=== PATIENT | female | born 2000 | race Caucasian/White ===

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

== ENCOUNTER 2021-04-22 11:33 | Emergency (ER) | payer BC ==
[2021-04-22 13:23] VITALS: PULSE 72
[2021-04-22] MEDS ORDERED: Gentamicin 0.3% Ophth Soln 5 ML Bottle EYELF ONE (13:56)
--- NOTE | 2021-04-22 14:39 | EDM.PDOC ---
Scribed by Anna Hirsch 04/22/21 1439 for Mike Sumner MD ED HPI GENERAL MEDICAL PROBLEM - General Chief Complaint: Eye Problems Stated Complaint: [id number] BAD EYE INFECTION Time Seen by Provider: 04/22/21 13:40 Source of Information: Reports: Patient, RN, RN Notes Reviewed History Limitations: Reports: No Limitations - History of Present Illness INITIAL COMMENTS - FREE TEXT/NARRATIVE: Patient presents with L periorbital redness and rash without conjunctivitis that causes 8/10 pain she describes as burning. It started yesterday morning while working. It is associated with itchiness, and non-purulent eye discharge. She denies head ache, congestion, cough, no sick contacts. She has an ~8 year history of blepharitis yearly around this time, this is similar to the past episodes. 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: Other Medication(s) (Ibuprofen) Left Eye Pain Score (Numeric/FACES): 7 - Related Data Allergies Allergy/AdvReac Type Severity Reaction Status Date / Time cefdinir [From Omnicef] Allergy Swelling Verified 01/01/18 19:02 latex Allergy Rash Verified 01/01/18 19:02 sodium fluoride Allergy Swelling Verified 01/01/18 19:02 [From Thera-Flur] Home Meds: Home Meds l-Norgest/E.estradiol-E.estrad [Seasonique 0.15-0.03-0.01] 1 tab PO DAILY 04/22/15 [History] Propranolol HCl 40 mg PO ASDIRECTED 04/22/21 [History] Past Medical History HEENT History: Reports: None Cardiovascular History: Reports: None Respiratory History: Reports: Asthma Gastrointestinal History: Reports: None Genitourinary History: Reports: None Musculoskeletal History: Reports: None Psychiatric History: Reports: Anxiety Hematologic History: Reports: Anemia, Iron Deficiency - Infectious Disease History Infectious Disease History: Reports: Shingles Social & Family History - Family History Family Medical History: No Pertinent Family History Cardiac: Reports: None Respiratory: Reports: None, Asthma GI: Reports: None - Tobacco Use Tobacco Use Status *Q: Current Every Day Tobacco User Years of Tobacco use: 1 Packs/Tins Daily: 1 - Caffeine Use Caffeine Use: Reports: Coffee - Recreational Drug Use Recreational Drug Use: No ED ROS GENERAL - Review of Systems Review Of Systems: Comprehensive ROS is negative, except as noted in HPI. ED EXAM GENERAL W FULL EYE - Physical Exam Exam: See Below Exam Limited By: No Limitations General Appearance: Alert, WD/WN, No Apparent Distress Eye Exam: Left Eye: Periorbital Changes Eyelids: Right: Normal Appearance, Left: Edema, Erythema Conjunctiva & Sclera: Bilateral: Normal Appearance Extraocular Movements: Bilateral: Intact Pupils: Normal Accommodation Nose: Normal Inspection, Normal Mucosa, No Blood Throat/Mouth: Normal Inspection, Normal Lips, Normal Teeth, Normal Gums, Normal Oropharynx, Normal Voice, No Airway Compromise Head: Atraumatic, Normocephalic Respiratory/Chest: No Respiratory Distress, Lungs Clear, Normal Breath Sounds, No Accessory Muscle Use, Chest Non-Tender Cardiovascular: Normal Peripheral Pulses, Regular Rate, Rhythm, No Edema, No Gallop, No JVD, No Murmur, No Rub Neurological: Alert, Oriented, CN II-XII Intact, Normal Cognition, Normal Gait, Normal Reflexes, No Motor/Sensory Deficits Psychiatric: Normal Affect, Normal Mood Skin Exam: Warm, Dry, Intact, Normal Color, No Rash Lymphatic: No Adenopathy Course - Vital Signs Last Recorded V/S: Last Vital Signs Temp 97.7 F 04/22/21 13:20 Pulse 72 04/22/21 13:20 Resp 14 04/22/21 13:20 BP 127/76 04/22/21 13:20 Pulse Ox 99 04/22/21 13:20 - Orders/Labs/Meds Meds: Medications Discontinued Medications Generic Name Dose Route Start Last Admin Trade Name Frelexy PRN Reason Stop Dose Admin Gentamicin Sulfate 5 ml 04/22/21 13:56 04/22/21 14:17 Gentamicin 0.3% Ophth Soln 5 Ml Bottle EYELF 04/22/21 13:57 1 drop ONETIME ONE Administration Departure - Departure Time of Disposition: 14:37 Disposition: Home, Self-Care 01 Condition: Good Clinical Impression: Periorbital dermatitis Conjunctivitis Qualifiers: Conjunctivitis type: acute Acute conjunctivitis type: unspecified Laterality: left Qualified Code(s): H10.32 - Unspecified acute conjunctivitis, left eye - Discharge Information *PRESCRIPTION DRUG MONITORING PROGRAM REVIEWED*: Not Applicable *COPY OF PRESCRIPTION DRUG MONITORING REPORT IN PATIENT JULIANA: Not Applicable Instructions: Bacterial Conjunctivitis, Adult, Allergic Conjunctivitis, Adult, [id number] Forms: ED Department Discharge Additional Instructions: Rx: Bactroban (Mupirocin) 2% Rx: Triamcinolone 0.1% Use Gentamicin eye drops: one drop in left eye four times a day for 5 days. Follow up in clinic if not improving as expected. Sepsis Event Note (ED) - Focused Exam Vital Signs: Vital Signs Temp Pulse Resp BP Pulse Ox 04/22/21 13:20 97.7 F 72 14 127/76 99 I have read and agree with the documentation that has been completed regarding this visit. By signing this record, I attest that the documentation was completed in my physical presence and is an accurate record of the encounter.
[2021-04-22 14:49] VITALS: BP 120/72
== END 2021-04-22 14:48 | disposition home or self-care (01) ==
LOC: DL.ED 11:33
DX: H10.32 Unspecified acute conjunctivitis, left eye (principal); L30.9 Dermatitis, unspecified; Z88.1 Allergy status to other antibiotic agents; Z91.040 Latex allergy status; Z88.8 Allergy status to other drugs, medicaments and biological substances; Z72.0 Tobacco use
CPT/HCPCS: 99282; A9270-GY

== ENCOUNTER 2021-07-01 05:06 | Emergency (ER) | payer BC ==
--- NOTE | 2021-07-01 05:26 | EDM.PDOC ---
"<Huang Mike M - Last Filed: 07/01/21 07:17> ED HPI GENERAL MEDICAL PROBLEM - General Chief Complaint: Upper Extremity Injury/Pain Stated Complaint: RIGHT HAND BROKEN Time Seen by Provider: 07/01/21 05:26 - Related Data Allergies Allergy/AdvReac Type Severity Reaction Status Date / Time cefdinir [From Omnicef] Allergy Swelling Verified 07/01/21 05:25 latex Allergy Rash Verified 07/01/21 05:25 sodium fluoride Allergy Swelling Verified 07/01/21 05:25 [From Thera-Flur] Home Meds: Home Meds Propranolol HCl 40 mg PO ASDIRECTED 04/22/21 [History] Ferrous Sulfate 325 mg PO DAILY 07/01/21 [History] medroxyPROGESTERone [Depo-Provera Contraceptive] 150 mg IM ASDIRECTED 07/01/21 [History] Course - Radiology Interpretation Free Text/Narrative:: [facility] Final Radiology Report with Addendum Call: [phone] assistance Online chat: [email or web address] Name: YURY TY Age: 20Years F Date: 07/01/2021 SSN: -- : 2000 Study: CR HAND COMP MIN 3V RT Requesting Physician: Maday Rich Images: 3 Addl Studies: Provided Clinical History: punched a door, right hand pain Contrast: Contrast Medium: Contrast Amount: Contrast Method: Page 1 of 2 Addendum created by Ryan Rodríguez MD on 07/01/2021 7:02 AM Central Time ([place] & [place]): With the advantage of a true lateral radiograph obtained after dictation, there is prominent soft tissue swelling of the hand, primarily at the dorsum of the hand. Also, there is a questionable fracture at the dorsum of the hamate, which could involve the 5th CMC joint. Initial Report created on 07/01/2021 6:11 AM Central Time ([place] & [place]): PROCEDURE INFORMATION: Exam: XR Right Hand Exam date and time: 07/01/2021 5:37 AM Age: 20 years old Clinical indication: Other: Pain; Additional info: Punched a door, right hand pain TECHNIQUE: Imaging protocol: XR Right hand. Views: 3 or more views. COMPARISON: No relevant prior studies available. FINDINGS: Bones/joints: Bone mineralization is normal. No evident fracture. Joint spacing and alignment are maintained. Soft tissues: The soft tissues are unremarkable. Other findings: There is no true lateral radiograph. IMPRESSION: 1. No dedicated lateral radiograph is provided for interpretation. A dedicated l ateral radiograph is recommended for complete evaluation. YURY TY | Final Radiology Report CONFIDENTIALITY STATEMENT This report is intended only for use by the referring physician, and only in accordance with law. If you received this in error, call [phone]. Page 2 of 2 2. On the provided views, no acute osseous abnormality is evident. Thank you for allowing us to participate in the care of your patient. Dictated and Authenticated by: Ryan Rodríguez MD 07/01/2021 6:11 AM Central Time ([place] & [place]) Departure - Departure Time of Disposition: 07:21 Disposition: Home, Self-Care 01 Clinical Impression: Wrist strain Qualifiers: Encounter type: initial encounter Laterality: right Qualified Code(s): S66.911A - Strain of unspecified muscle, fascia and tendon at wrist and hand level, right hand, initial encounter Fracture of hamate of right wrist Qualifiers: Encounter type: initial encounter Hamate bone location: unspecified portion of hamate Fracture type: closed Fracture alignment: nondisplaced Qualified Code(s): S62.144A - Nondisplaced fracture of body of hamate [unciform] bone, right wrist, initial encounter for closed fracture - Discharge Information Instructions: Wrist Fracture Treated With Immobilization, [id number] Forms: ED Department Discharge Care Plan Goals: The patient was advised of the examination and x-ray results during the visit. The patient was placed in a manufactured splint (Velco) for immobilization. The patient was encouraged to rest, ice and elevate her right hand/wrist over the next 48 hours. The patient was encouraged to follow-up with her primary care facility next week for continued evaluation and management. If the patient has any additional symptoms or concerns, the patient should either return to the emergency department or visit her primary care facility. <Maday Rich - Last Filed: 07/01/21 19:39> ED HPI GENERAL MEDICAL PROBLEM - General Source of Information: Reports: Patient, RN, RN Notes Reviewed History Limitations: Reports: Intoxication - History of Present Illness INITIAL COMMENTS - FREE TEXT/NARRATIVE: Pt is a 20 year old female who presents to ER with c/o right hand pain. Patient states she has been drinking most of the night. She states about 1/2 hour prior to arrival to the ER, she punched a door. Patient c/o swelling, ecchymosis, and 9/10 pain to the right hand. Patient denies chances of . Onset: Today, Sudden Right Hand Pain Score (Numeric/FACES): 9 Past Medical History HEENT History: Reports: None Cardiovascular History: Reports: None Respiratory History: Reports: Asthma Gastrointestinal History: Reports: None Genitourinary History: Reports: None Musculoskeletal History: Reports: None Psychiatric History: Reports: Anxiety Hematologic History: Reports: Anemia, Iron Deficiency - Infectious Disease History Infectious Disease History: Reports: Shingles - Past Surgical History HEENT Surgical History: Reports: Tonsillectomy GI Surgical History: Reports: EGD Social & Family History - Family History Family Medical History: No Pertinent Family History Cardiac: Reports: None Respiratory: Reports: None, Asthma GI: Reports: None - Tobacco Use Tobacco Use Status *Q: Never Tobacco User Second Hand Smoke Exposure: No - Caffeine Use Caffeine Use: Reports: Soda - Recreational Drug Use Recreational Drug Use: No Review of Systems - Review of Systems Review Of Systems: Comprehensive ROS is negative, except as noted in HPI. ED EXAM, GENERAL - Physical Exam Exam: See Below Exam Limited By: Intoxication General Appearance: Alert, Moderate Distress Eye Exam: Bilateral Eye: Conjunctival Injection, EOMI Ears: Normal External Exam, Hearing Grossly Normal Nose: Normal Inspection Throat/Mouth: Normal Inspection, Normal Voice, No Airway Compromise Head: Atraumatic, Normocephalic Neck: Normal Inspection, Full Range of Motion Respiratory/Chest: No Respiratory Distress, Lungs Clear, Normal Breath Sounds, No Accessory Muscle Use, Chest Non-Tender Cardiovascular: Normal Peripheral Pulses, Regular Rate, Rhythm, No Edema, No Gallop, No JVD, No Murmur, No Rub Peripheral Pulses: 2+: Radial (L), Radial (R) GI/Abdominal: Normal Bowel Sounds, Soft, Non-Tender (Female) Exam: Deferred Rectal (Female) Exam: Deferred Back Exam: Normal Inspection, Full Range of Motion, NT Extremities: Other (right hand swollen, ecchymotic, limited ROM) Neurological: Alert, Slow to Respond Psychiatric: Anxious, Tearful Skin Exam: Warm, Dry, Intact, No Rash, Ecchymosis (right hand) Lymphatic: No Adenopathy Course - Vital Signs Last Recorded V/S: Last Vital Signs Temp 98.4 F 07/01/21 06:45 Pulse 94 07/01/21 06:45 Resp 16 07/01/21 06:45 BP 117/82 07/01/21 06:45 Pulse Ox 97 07/01/21 06:45 - Orders/Labs/Meds Orders: Active Orders 24 hr Category Date Time Status DME for Discharge [COMM] Urgent Oth 07/01/21 07:18 Ordered Meds: Medications Discontinued Medications Generic Name Dose Route Start Last Admin Trade Name Zackery PRN Reason Stop Dose Admin Acetaminophen 650 mg 07/01/21 06:15 07/01/21 06:42 Acetaminophen 325 Mg Tab PO 07/01/21 06:16 650 mg NOW ONE Administration - Radiology Interpretation Free Text/Narrative:: Right hand xray: [facility] Final Radiology Report Call: [phone] assistance Online chat: [email or web address] Name: YURY TY Age: 20Years F Date: 07/01/2021 SSN: -- : 2000 Study: CR HAND COMP MIN 3V RT Requesting Physician: Maday Rich Images: 3 Addl Studies: Provided Clinical History: punched a door, right hand pain Contrast: Contrast Medium: Contrast Amount: Contrast Method: CONFIDENTIALITY STATEMENT This report is intended only for use by the referring physician, and only in accordance with law. If you received this in error, call [phone]. Page 1 of 1 PROCEDURE INFORMATION: Exam: XR Right Hand Exam date and time: 07/01/2021 5:37 AM Age: 20 years old Clinical indication: Other: Pain; Additional info: Punched a door, right hand pain TECHNIQUE: Imaging protocol: XR Right hand. Views: 3 or more views. COMPARISON: No relevant prior studies available. FINDINGS: Bones/joints: Bone mineralization is normal. No evident fracture. Joint spacing and alignment are maintained. Soft tissues: The soft tissues are unremarkable. Other findings: There is no true lateral radiograph. IMPRESSION: 1. No dedicated lateral radiograph is provided for interpretation. A dedicated lateral radiograph is recommended for complete evaluation. 2. On the provided views, no acute osseous abnormality is evident. Thank you for allowing us to participate in the care of your patient. Dictated and Authenticated by: Ryan Rodríguez MD 07/01/2021 6:11 AM Central Time ([place] & [place]) See rad report Departure - Departure Condition: Fair - Discharge Information *PRESCRIPTION DRUG MONITORING PROGRAM REVIEWED*: No *COPY OF PRESCRIPTION DRUG MONITORING REPORT IN PATIENT JULIANA: No Sepsis Event Note (ED) - Evaluation Sepsis Screening Result: No Definite Risk"
--- NOTE | 2021-07-01 06:11 | CR ---
PROCEDURE INFORMATION: Exam: XR Right Hand Exam date and time: 07/01/2021 5:37 AM Age: 20 years old Clinical indication: Other: Pain; Additional info: Punched a door, right hand pain TECHNIQUE: Imaging protocol: XR Right hand. Views: 3 or more views. COMPARISON: No relevant prior studies available. FINDINGS: Bones/joints: Bone mineralization is normal. No evident fracture. Joint spacing and alignment are maintained. Soft tissues: The soft tissues are unremarkable. Other findings: There is no true lateral radiograph. IMPRESSION: 1. No dedicated lateral radiograph is provided for interpretation. A dedicated lateral radiograph is recommended for complete evaluation. 2. On the provided views, no acute osseous abnormality is evident.
[2021-07-01] MEDS ORDERED: Acetaminophen 325 MG Tab PO ONE (06:15)
[2021-07-01 06:46] VITALS: BP 117/82; PULSE 94
== END 2021-07-01 07:32 | disposition home or self-care (01) ==
LOC: DL.ED 05:06
DX: S62.144A Nondisplaced fracture of body of hamate [unciform] bone, right wrist, initial encounter for closed fracture (principal); S66.911A Strain of unspecified muscle, fascia and tendon at wrist and hand level, right hand, initial encounter; J45.909 Unspecified asthma, uncomplicated; D50.9 Iron deficiency anemia, unspecified; Z88.1 Allergy status to other antibiotic agents; Z91.040 Latex allergy status; Z88.8 Allergy status to other drugs, medicaments and biological substances; Z79.899 Other long term (current) drug therapy; W22.8XXA Striking against or struck by other objects, initial encounter
CPT/HCPCS: 73130; 99283; A9270

== ENCOUNTER 2023-03-19 14:27 | Emergency (ER) | payer BC ==
[2023-03-19 16:55] VITALS: BP 131/80; PULSE 56
== END 2023-03-19 19:00 | disposition left against medical advice (07) ==
LOC: DL.ED 14:27
DX: Z53.21 Procedure and treatment not carried out due to patient leaving prior to being seen by health care provider (principal)

== ENCOUNTER 2023-06-17 06:04 | Day surgery (SDC) | payer BC ==
[~2023-06-17 06:04] MED LIST: Dextrose 5%-0.45% NaCl 1,000 ML IV SCH
[2023-06-17] MEDS ORDERED: Midazolam 1 MG/ML 2 ML SDV ONE (06:16)
[2023-06-17] MEDS ORDERED: fentaNYL 100 MCG/2 ML SDV ONE (06:16)
[2023-06-17] MEDS ORDERED: fentaNYL 100 MCG/2 ML SDV IV ONE ×2 (06:56→06:57)
[2023-06-17] MEDS ORDERED: Midazolam 1 MG/ML 2 ML SDV IV ONE ×2 (06:57→06:58)
[2023-06-17 08:54] VITALS: BP 105/69; PULSE 84
== END 2023-06-17 09:05 | disposition home or self-care (01) ==
LOC: DL.ENDO 06:04
PROVIDERS: ATTEND Internal Medicine Gastroenterology
DX: K29.50 Unspecified chronic gastritis without bleeding (principal); K31.84 Gastroparesis; F41.9 Anxiety disorder, unspecified; Z88.1 Allergy status to other antibiotic agents; Z91.040 Latex allergy status
CPT/HCPCS: 87077; J2250; J3010; J7042

== ENCOUNTER 2024-06-10 21:28 | Emergency (ER) | payer BC ==
[2024-06-10] MEDS: Dexamethasone 4 MG/ML SDV IVPUSH ONE (21:59)
[2024-06-10] MEDS: diphenhydrAMINE 50 MG/ML SDV IVPUSH ONE (21:59)
[2024-06-10] MEDS: EPINEPHrine 1 MG/ML SDV IM ONE (21:59)
[2024-06-10 22:05] VITALS: PULSE 128
[2024-06-10 22:29] VITALS: BP 106/61
== END 2024-06-10 23:01 | disposition home or self-care (01) ==
LOC: DL.ED 21:28
DX: L50.0 Allergic urticaria (principal); J45.909 Unspecified asthma, uncomplicated; Z90.89 Acquired absence of other organs; Z88.1 Allergy status to other antibiotic agents; Z88.8 Allergy status to other drugs, medicaments and biological substances; Z91.040 Latex allergy status; Z79.899 Other long term (current) drug therapy
CPT/HCPCS: 96372; 96374; 96375; 99283; J0171; J1100; J1200

== ENCOUNTER 2024-12-24 14:43 | Emergency (ER) | payer BC ==
[2024-12-24] MEDS ORDERED: Sodium Chloride 0.9% 10 ML Syringe FLUSH PRN (14:55)
[2024-12-24] MEDS: Dexamethasone 4 MG/ML SDV IVPUSH ONE (15:07)
[2024-12-24] MEDS: diphenhydrAMINE 50 MG/ML SDV IVPUSH ONE (15:08)
[2024-12-24 15:37] VITALS: BP 113/79; PULSE 67
== END 2024-12-24 15:42 | disposition home or self-care (01) ==
LOC: DL.ED 14:43
DX: R07.89 Other chest pain (principal); T45.0X5A Adverse effect of antiallergic and antiemetic drugs, initial encounter; Z91.040 Latex allergy status; Z88.1 Allergy status to other antibiotic agents; Z79.899 Other long term (current) drug therapy
CPT/HCPCS: 96374; 96375; 99284; J1100; J1200